=== PATIENT | male | born 1960 | race Caucasian/White ===

== ENCOUNTER 2022-11-17 08:45 | Outpatient (OUT) | payer BC, SELFPAY ==
--- NOTE | 2022-11-17 10:29 | XR_ITS ---
[facility] [place] [id number] Patient Name: JOANNE MOYER MRN: [id number] date: 1960 Sex: M Assigned Patient Location: RAD Current Patient Location: [facility] Accession/Order Number: [id number] Exam Date: 11/17/2022 10:30 Report Date: 11/17/2022 14:37 At the request of: ERIBERTO GUDINO Procedure: XR hand LT min 3V PROCEDURE: XR hand LT min 3V HISTORY: Contusion R52 ; pain, bruising, swelling left fourth and fifth digits and carpal bones COMPARISON: None. FINDINGS: BONES:Acute, minimally displaced fracture involving medial margin of the fourth metacarpal head with extension into the medial articular surface. Mild degenerative changes of the first metacarpal phalangeal joint. SOFT TISSUES:Soft tissue swelling of fourth digit and dorsum of hand. EFFUSION:None visible. OTHER: Negative. IMPRESSION: 1. Acute, minimally displaced fracture of fourth metacarpal head. Electronically authenticated by: GEM HILL Date: 11/17/2022 14:37
== END 2022-11-17 08:46 ==
LOC: RAD 08:50
PROVIDERS: PCP Emergency Medicine; Visit Provider Emergency Medicine
DX: S60.222A Contusion of left hand, initial encounter (principal); S62.395A Other fracture of fourth metacarpal bone, left hand, initial encounter for closed fracture
CPT/HCPCS: 73130